=== PATIENT | male | born 1980 | race Caucasian/White ===

== ENCOUNTER 2018-10-25 01:43 | Emergency (ER) | payer BC ==
[2018-10-25] MEDS ORDERED: Sodium Chloride 0.9% 10 ML Syringe FLUSH PRN (02:07)
--- NOTE | 2018-10-25 02:13 | EDM.PDOC ---
ED HPI GENERAL MEDICAL PROBLEM - General Chief Complaint: Abdominal Pain Stated Complaint: Abdominal Pain Time Seen by Provider: 10/25/18 01:55 Source of Information: Reports: Patient History Limitations: Reports: No Limitations - History of Present Illness INITIAL COMMENTS - FREE TEXT/NARRATIVE: Patient comes into the emergency department with complaint of right lower quadrant pain. Patient states generalized abdominal discomfort is not the ordinary for him. He states he was diagnosed with Crohn's disease back in September however he has not been able to start any medication regiment due to insurance issues. He states tonight however he developed a sharp shooting and tearing sensation of the right lower quadrant. The discomfort radiated to his flank area. He describes that he has not encountered similar symptoms in the past. Patient denies any urinary frequency, hesitancy, burning sensation, nausea, vomiting, chest pain, or shortness of breath. Patient had a colonoscopy and EGD approximately 6 months. He denies any other illnesses or concerns. He does state it feels better if he is laying down and not moving. Denies any other recent injuries or illnesses. Onset: Sudden Quality: Reports: Sharp, Throbbing Severity: Moderate Improves with: Reports: Immobilization Worsens with: Reports: Movement Associated Symptoms: Reports: No Other Symptoms RLQ around to the back Pain Score (Numeric/FACES): 10 - Related Data Allergies Allergy/AdvReac Type Severity Reaction Status Date / Time No Known Allergies Allergy Verified 10/25/18 02:30 Home Meds: Home Meds Omeprazole 40 mg PO DAILY 10/25/18 [History] predniSONE [Prednisone] 5 mg PO DAILY 10/25/18 [History] ED ROS GENERAL - Review of Systems Review Of Systems: See Below Constitutional: Reports: No Symptoms HEENT: Reports: No Symptoms Respiratory: Reports: No Symptoms Cardiovascular: Reports: No Symptoms Endocrine: Reports: No Symptoms GI/Abdominal: Reports: Abdominal Pain, Diarrhea : Reports: No Symptoms Musculoskeletal: Reports: No Symptoms Skin: Reports: No Symptoms Neurological: Reports: No Symptoms Psychiatric: Reports: No Symptoms Hematologic/Lymphatic: Reports: No Symptoms ED EXAM, GENERAL - Physical Exam Exam: See Below Exam Limited By: No Limitations General Appearance: Alert, WD/WN, No Apparent Distress Neck: Normal Inspection, Supple, Non-Tender, Full Range of Motion Respiratory/Chest: No Respiratory Distress, Lungs Clear, Normal Breath Sounds, No Accessory Muscle Use, Chest Non-Tender Cardiovascular: Normal Peripheral Pulses, Regular Rate, Rhythm, No Edema GI/Abdominal: Rebound, Tender, Abnormal Bowel Sounds Back Exam: CVA Tenderness (R) Extremities: Normal Inspection, Normal Range of Motion, Non-Tender, Normal Capillary Refill Neurological: Alert, Oriented, Normal Gait, Normal Reflexes Psychiatric: Normal Affect, Normal Mood Skin Exam: Warm, Pallor Course - Vital Signs Last Recorded V/S: Last Vital Signs Temp 37.5 C 10/25/18 01:45 Pulse 139 H 10/25/18 01:45 Resp 16 10/25/18 01:45 BP 142/96 H 10/25/18 01:45 Pulse Ox 100 10/25/18 01:45 - Orders/Labs/Meds Orders: Active Orders 24 hr Category Date Time Status EKG Documentation Completion [RC] STAT Care 10/25/18 02:06 Active Abdomen Pelvis wo Cont [CT] Stat Exams 10/25/18 02:07 Taken HYDROmorphone [Dilaudid] Med 10/25/18 03:44 Once 1 mg IVPUSH ONETIME ONE Piperacillin/Tazobactam [Zosyn] 3.375 gm Med 10/25/18 03:43 Active Sodium Chloride 0.9% [Normal Saline] 100 ml IV STAT Sodium Chloride 0.9% [Saline Flush] Med 10/25/18 02:07 Active 10 ml FLUSH ASDIRECTED PRN Peripheral IV Insertion Adult [OM.PC] Stat Oth 10/25/18 02:06 Ordered Medication Orders Hydromorphone HCl (Dilaudid) 1 mg IVPUSH ONETIME ONE Stop: 10/25/18 03:45 Piperacillin Sod/Tazobactam (Sod 3.375 gm/ Sodium Chloride) 100 mls @ 200 mls/ hr IV STAT ONE Stop: 10/25/18 04:12 Sodium Chloride (Saline Flush) 10 ml FLUSH ASDIRECTED PRN PRN Reason: Keep Vein Open Labs: Laboratory Tests 10/25/18 10/25/18 Range/Units 01:55 01:55 WBC 15.7 H (4.0-10.0) x10^3/uL RBC 5.31 (4.5-6.0) x10^6/uL Hgb 13.7 L (14.0-18.0) g/dL Hct 43.1 (40.0-52.0) % MCV 81.2 (78.0-93.0) fL MCH 25.8 L (26.0-32.0) pg MCHC 31.8 L (32.0-36.0) g/dL RDW Coeff of Jeannette 14.7 (10.0-15.0) % Plt Count 401 H (130-400) x10^3/uL Neut % (Auto) 85.1 H (50.0-80.0) % Lymph % (Auto) 6.9 L (25.0-50.0) % Perry % (Auto) 7.2 (2.0-11.0) % Eos % (Auto) 0.7 (0.0-4.0) % Baso % (Auto) 0.1 L (0.2-1.2) % Sodium 137 (136-145) mmol/L Potassium 3.2 L (3.5-5.1) mmol/L Chloride 97 L (98-107) mmol/L Carbon Dioxide 28 (21-32) mmol/L Anion Gap 15.2 (10-20) mmol/L BUN 9 (7-18) mg/dL Creatinine 1.1 (0.70-1.30) mg/dL Est Cr Clr Drug Dosing TNP Estimated GFR (MDRD) > 60 Glucose 164 H (74-106) mg/dL Calcium 9.1 (8.5-10.1) mg/dL Corrected Calcium 10.46 H (8.5-10.1) mg/dL Total Bilirubin 0.4 (0.2-1.0) mg/dL AST 17 (15-37) U/L ALT 27 (16-63) U/L Alkaline Phosphatase 124 H (46-116) U/L Total Protein 7.6 (6.4-8.2) g/dL Albumin 2.3 L (3.4-5.0) g/dL Globulin 5.3 Albumin/Globulin Ratio 0.43 Meds: Medications Generic Name Dose Route Start Last Admin Trade Name Freq PRN Reason Stop Dose Admin Hydromorphone HCl 1 mg 10/25/18 03:44 Dilaudid IVPUSH 10/25/18 03:45 ONETIME ONE Piperacillin Sod/Tazobactam 100 mls @ 200 mls/hr 10/25/18 03:43 Sod 3.375 gm/ Sodium Chloride IV 10/25/18 04:12 STAT ONE Sodium Chloride 10 ml 10/25/18 02:07 Saline Flush FLUSH ASDIRECTED PRN Keep Vein Open Discontinued Medications Generic Name Dose Route Start Last Admin Trade Name Freq PRN Reason Stop Dose Admin Hydromorphone HCl 1 mg 10/25/18 02:38 10/25/18 02:41 Dilaudid IVPUSH 10/25/18 02:39 1 mg ONETIME ONE Administration Sodium Chloride 1,000 mls @ 1,000 mls/hr 10/25/18 02:15 10/25/18 02:16 Normal Saline IV 10/25/18 03:14 1,000 mls/hr ONETIME ONE Administration Ondansetron HCl 4 mg 10/25/18 02:39 10/25/18 02:42 Zofran IVPUSH 10/25/18 02:40 4 mg ONETIME STA Administration Departure - Departure Time of Disposition: 03:30 Disposition: DC/Tfer to Acute Hospital 02 Condition: Good, Fair Clinical Impression: Perforated intestine, Intestinal abscess, Free fluid in pelvis Abdominal pain Qualifiers: Abdominal location: right lower quadrant Qualified Code(s): R10.31 - Right lower quadrant pain - Discharge Information *PRESCRIPTION DRUG MONITORING PROGRAM REVIEWED*: Not Applicable *COPY OF PRESCRIPTION DRUG MONITORING REPORT IN PATIENT KEYUR: Not Applicable Referrals: Tom Snider MD [Primary Care Provider] - Forms: Interfacility Transfer EMTALA - My Orders Last 24 Hours: My Active Orders 10/25/18 02:06 EKG Documentation Completion [RC] STAT Peripheral IV Insertion Adult [OM.PC] Stat 10/25/18 02:07 Abdomen Pelvis wo Cont [CT] Stat Sodium Chloride 0.9% [Saline Flush] 10 ml FLUSH ASDIRECTED PRN 10/25/18 03:43 Piperacillin/Tazobactam [Zosyn] 3.375 gm Sodium Chloride 0.9% [Normal Saline] 100 ml IV STAT 10/25/18 03:44 HYDROmorphone [Dilaudid] 1 mg IVPUSH ONETIME ONE - Assessment/Plan Last 24 Hours: My Active Orders 10/25/18 02:06 EKG Documentation Completion [RC] STAT Peripheral IV Insertion Adult [OM.PC] Stat 10/25/18 02:07 Abdomen Pelvis wo Cont [CT] Stat Sodium Chloride 0.9% [Saline Flush] 10 ml FLUSH ASDIRECTED PRN 10/25/18 03:43 Piperacillin/Tazobactam [Zosyn] 3.375 gm Sodium Chloride 0.9% [Normal Saline] 100 ml IV STAT 10/25/18 03:44 HYDROmorphone [Dilaudid] 1 mg IVPUSH ONETIME ONE Assessment:: 1. right lower abdominal pain 2. Perforated bowel Plan: 1. Labs completed in the ER. Results reviewed with the patient 2. IV and fluids given to the patient the ER 3. CT of the abdomen and pelvis without contrast ordered. Results reviewed with the patient 4. UA completed in the ER. Results reviewed with the patient 5. Dilaudid and zofran given in ER. 6. [facility] called [phone] results[address] Will call back. [phone] Dr. Black called back. He agrees patient needs admit further evaluation and surgical consult 7. Patient will be transferred via ambulance to [facility] for further evaluation and surgical consultation 8. All questions and concerns addressed prior to discharge
[2018-10-25] MEDS: Sodium Chloride 0.9% 1,000 ML IV ONE (02:16)
[2018-10-25] MEDS: HYDROmorphone 1 MG/ML Syringe IVPUSH ONE ×2 (02:41→04:30)
[2018-10-25] MEDS: Ondansetron 4 MG/2 ML SDV IVPUSH STA (02:42)
[2018-10-25 02:48] LABS: CHLORIDE,CL 97 mmol/L (98-107); SODIUM,NA 137 mmol/L (136-145)
[2018-10-25 02:52] LABS: ANION GAP 15.2 mmol/L (10-20)
[2018-10-25] MEDS: Piperacillin/Tazobactam 3.375 GM in Sodium Chloride 0.9% 100 ML IV ONE (03:49)
--- NOTE | 2018-10-25 11:43 | CT ---
[id number] CT/CT Abdomen Pelvis WO IV EXAM: ABDOMEN AND PELVIS CT WITHOUT CONTRAST INDICATION: Right lower quadrant abdominal pain. COMPARISON: July 01, 2018. DISCUSSION: In the right lower quadrant there is a 5.7 x 3.2 x 4.3 cm gas and fluid collection consistent with abscess. There are significant inflammatory changes in the adjacent terminal ileum and cecum which have increased. Findings suggest perforation likely of the terminal ileum, but potentially the adjacent cecum. An enterocolonic fistula between the terminal ileum and adjacent cecum is not excluded. There is a small volume of pneumoperitoneum. Trace free fluid in the pelvis. The remaining ascending colon demonstrates creeping fat suggestive of inflammatory bowel disease. There is persistent adenopathy in the mesentery which is most prominent adjacent to the areas of inflammation with a [employer] furniture lymph node measuring 16 x 13 mm. Overall the adenopathy is similar to the prior study. There are couple of tiny nonobstructing bilateral intrarenal calculi. Subcentimeter cyst lower pole right kidney. 12 mm cyst in the inferior aspect of the right lobe of liver. The spleen is mildly enlarged measuring 13.5 cm in length. Small fat-containing bilateral inguinal hernias. The pancreas, gallbladder, adrenal glands, proximal small bowel and distal colon are normal in appearance. The osseous structures are unremarkable. Findings were called at 3:15 AM. IMPRESSION: 1. 5.7 x 4.3 x 3.2 cm right lower quadrant abscess relating to inflammatory bowel disease/inflammation in the terminal ileum and to a lesser extent the cecum. There is a small volume associated pneumoperitoneum. Alpesh Montoya MD 10/25/18 [phone] Thank you for allowing us to participate in the care of your patient.
== END 2018-10-25 04:35 | disposition short-term general hospital (02) ==
LOC: VM.ED 01:45
DX: K63.0 Abscess of intestine (principal); K63.1 Perforation of intestine (nontraumatic); Z79.899 Other long term (current) drug therapy
CPT/HCPCS: 74176; 80053; 85025; 93005; 96361; 96365; 96375; 96376; 99285; J1170; J2405; J2543; J7030; J7050